=== PATIENT | female | born 1970 | race Caucasian/White ===

== ENCOUNTER 2022-06-04 10:53 | Outpatient (CLI) | payer OTHER, SELFPAY | END 2022-06-04 10:54 | disposition home or self-care (01) | PROVIDERS: PCP Physician Assistant Medical; Visit Provider Physician Assistant Medical | DX: E89.0 Postprocedural hypothyroidism (principal) | CPT/HCPCS: 84443 ==

== ENCOUNTER 2022-09-26 07:42 | Outpatient (CLI) | payer OTHER, SELFPAY | END 2022-09-26 07:43 | disposition home or self-care (01) | LOC: FBOREF 07:42 | PROVIDERS: PCP Physician Assistant Medical; Visit Provider Physician Assistant Medical | DX: E03.9 Hypothyroidism, unspecified (principal) | CPT/HCPCS: 84443 ==

== ENCOUNTER 2022-11-28 08:31 | Outpatient (CLI) | payer OTHER, SELFPAY | END 2022-11-28 08:32 | disposition home or self-care (01) | LOC: NFLDREF 11-29 07:43 | PROVIDERS: PCP Physician Assistant Medical; Referring Provider Physician Assistant Medical; Visit Provider Registered Nurse | DX: Z13.6 Encounter for screening for cardiovascular disorders (principal) | CPT/HCPCS: 80061 ==

== ENCOUNTER 2023-01-02 14:36 | Outpatient (CLI) | payer OTHER, SELFPAY ==
--- NOTE | 2023-01-02 14:40 | CRLHL7_ITS ---
For Patients: As a result of the Century Cures Act, medical imaging exams and procedure reports are released immediately into your electronic medical record. You may view this report before your referring provider. If you have questions, please contact your health care provider. BILATERAL SCREENING MAMMOGRAM WITH COMPUTER-AIDED DETECTION AND TOMOSYNTHESIS TECHNIQUE: CC and MLO views were obtained. These mammographic images have been obtained using full-field digital technique. These mammographic images were interpreted with the benefit of computer-aided detection. Breast Tomosynthesis was used in this interpretation. COMPARISON FILM: 12/26/21, 10/02/20, 09/22/19. FINDINGS: The breasts are heterogeneously dense, which may obscure small masses IMPRESSION: There is no radiographic evidence for malignancy. ASSESSMENT: BI-RADS Category 2: Benign RECOMMENDATION: Routine screening mammogram in 1 year. A lay language report of this examination will be provided to the patient. Rigoberto Hurtado M.D. Diagnostic Radiologist [email or web address] SANDEEP/Dictated by: Rigoberto Hurtado MD @ 01/05/2023 11:18:00 AM (Electronically Signed)
== END 2023-01-02 14:37 | disposition home or self-care (01) ==
LOC: MAMMO 14:37
PROVIDERS: PCP Physician Assistant Medical; Visit Provider Registered Nurse
DX: Z12.31 Encounter for screening mammogram for malignant neoplasm of breast (principal); R92.2 Inconclusive mammogram
CPT/HCPCS: 77063; 77067

== ENCOUNTER 2023-05-26 15:20 | Outpatient (CLI) | payer OTHER, SELFPAY ==
[2023-05-26 21:55] LABS: Chlamydia DNA Amplified* NOT DETECTED (No Detected); GC DNA Amplified* NOT DETECTED (No Detected)
== END 2023-05-26 15:21 | disposition home or self-care (01) ==
PROVIDERS: PCP Physician Assistant Medical; Visit Provider Registered Nurse
DX: Z11.3 Encounter for screening for infections with a predominantly sexual mode of transmission (principal)
CPT/HCPCS: 86592; 86703; 86803; 87340; 87491; 87591

== ENCOUNTER 2023-12-01 10:17 | Outpatient (CLI) | payer OTHER, SELFPAY | END 2023-12-01 10:18 | disposition home or self-care (01) | PROVIDERS: PCP Physician Assistant Medical; Visit Provider Physician Assistant Medical | DX: Z00.00 Encounter for general adult medical examination without abnormal findings (principal); E03.9 Hypothyroidism, unspecified; E78.5 Hyperlipidemia, unspecified; Z11.3 Encounter for screening for infections with a predominantly sexual mode of transmission; Z11.59 Encounter for screening for other viral diseases | CPT/HCPCS: 80053; 80061; 84432; 84443; 86592; 86703; 86800; 86803; 87340 ==

== ENCOUNTER 2024-02-29 15:15 | Outpatient (CLI) | payer OTHER, SELFPAY ==
--- OUTSIDE RECORDS SUMMARY | 2024-02-29 15:17 | XMS_ITS | Clinical Summary ---
Author Organization Formerly [facility] Address [address] [place] [address] Care Team Providers Care Auto Glass Technician Name Role Phone Mary Anne Shah PA-C Primary Care Provider [phone] Source Comments You are receiving this document as you are listed as the primary care provider,follow-up provider, or the patient has been referred to you for consultation.This is in compliance with the Medicare andSt. [facility] Cent[facility] EHR Incentive Program,which states Providers who transition their patient to another setting of careor provider of care or refers their patient to another provider of care shouldprovide summary care record for each transition of care or referral. [employer] Allergies Active Allergy Reactions Criticality Noted Date Comments Other 03/07/2005 PN: LW Other1: -NKA Sulfa Antibiotics 03/22/2003 PN: LW Reaction: HIVES Medications Medication Sig Dispensed Refills Start Date End Date Status Multiple Vitamins-Minerals (MULTIVITAMIN OR) Take 1 tablet by mouth daily (every 24 hours). 100 13 06/11/2006 Active Cetirizine HCl (ZYRTEC CHILDRENS ALLERGY) 5 MG chewable tablet Take 1 tablet by mouth daily (every 24 hours). LW Addl Instr:Indicated for: Allergies 90 3 01/04/2010 Active omega-3 fatty acids (FISH OIL) 1000 MG capsule Take 2 g by mouth daily. Active metroNIDAZOLE (METROLOTION) 0.75 % lotion 59 mL 11 12/06/2021 Active levothyroxine (SYNTHROID) 112 MCG tablet Take 1 Tablet (112 mcg) by mouth daily. Take at least one hour before or two hours after meal. 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 Malignant neoplasm of thyroid gland 06/11/2006 Overview: LW Onset: [id number] ; Ca Thyroid Papillary Allergic rhinitis 02/11/2003 Overview: Rhinitis Allergic NOS Immunizations Name Administration Dates Next Due Flu Vac Preserv Free (3+yrs) 08/09/2008, 10/04/2007,07/22/2006,07/07/2005, MMR 03/16/1998 TDAP (ADACEL) 01/11/2010 Td 11/16/1996 Family History Medical History Relation Name Comments Cancer Father Prostate High Cholesterol Father Hypertension Mother Thyroid Disorder Brother Osteoporosis Maternal Grandmother Cancer Paternal Grandfather lung Hypertension Paternal Grandmother Cancer, Breast Negative Family History Relation Name Status Comments Father Mother Brother Maternal Grandmother Paternal Grandfather Paternal Grandmother Social History Tobacco Use Types Packs/Day Years Used Date Smoking Tobacco: Never Smokeless Tobacco: Never Alcohol Use Standard Drinks/Week Comments Yes 0.8 (1 standard drin k = 0.6 oz pure alcohol) Alcoholic Drinks/day: Amount:1-2 drinks; Freq:=< Monthly; Sex and Gender Information Value Date Recorded Sex Assigned at Not on file Gender Identity Not on file Sexual Orientation Not on file Last Filed Vital Signs Vital Sign Reading Time Taken Comments Blood Pressure 125/70 07/30/2020 2:04 PM INDUSTRIAL RETROFIT DESIGNER Pulse 53 07/30/2020 2:02 PM INDUSTRIAL RETROFIT DESIGNER Temperature 37.1 ??C (98.8 ??F) 05/25/2014 8:35 AM CD T Respiratory Rate 16 05/01/2017 11:10 AM CDT Oxygen Saturation - - Inhaled Oxygen Concentration - - Weight 80.4 kg (177 lb 3.2 oz) 07/30/2020 2:02 P M IND[employer]AL RETROFIT DESIGNER Height 170.2 cm (5' 7) 07/27/2019 2:10 PM INDUSTRIAL RETROFIT DESIGNER Body Mass Index 27.75 07/27/2019 2:10 PM INDUSTRIAL RETROFIT DESIGNER Plan of Treatment Health Maintenance Due Date Last Done Comments Colon Cancer Screening Plan Due 1970 Hep C Screening (Preventive Services) 1969 HepB (1) 1988 Cholesterol 01/10/2015 01/10/2010, 03/16/1998 Adult Preventive Visit 04/30/2018 04/30/2017 Cervical Cancer Screening 04/30/20202016, 07/17/2014, 05/17/2012, Additional history exists Mammogram 09/22/2020 09/22/2019, 11/0 01/2018, 09/04/2017, Additional history exists COVID-19 Vaccine ( season) 2023 07/24/2021, 01/09/2021, 12/21/2020 Influenza (Season Ended) 2024 021, 05/26/2020, 05/31/2019, Additional history exists DTaP/Tdap/Td (3 - Tdap) 05/31/2030 05/31/20 20, 01/11/2010, 11/16/1996 HIV Screening (Preventive Services) Completed 03/25/2005, 07/23/2001 Zoster/Shingles Completed 04/10/2020, 10/27/2019 HepA Aged Out No longer eligi ble based on patient's age to complete this topic Hib Aged Out No longer eligi ble based on patient's age to complete this topic IPV (Polio) Aged Out No longer eligi ble based on patient's age to complete this topic MCV4 Aged Out No longer eligi ble based on patient's age to complete this topic Pneumococcal Aged Out No longer eligi ble based on patient's age to complete this topic Procedures Procedure Name Priority Date/Time Associated Diagnosis Comments MM MAMMOGRAM SCREENING BILAT W 3D JUAN A W CAD Routine 09/22/2019 8:25 AM INDUSTRIAL RETROFIT DESIGNER Visit for screening mammogram ANATOMICAL PATH LIQUID BASED Routine 04/30/2017 2:09 PM CDT LIPID PANEL & DIRECT LDL (IF NEEDED) Routine 01/10/2010 9:17 AM CDT HIV ANTIBODY Routine 03/25/2005 9:03 AM CDT from Last 3 Months or Most Recently Relevant to Health Maintenance Results * MM Mammogram Screening Bilat W 3D Juan A W CAD (09/22/2019 8:25 AM INDUSTRIAL RETROFIT DESIGNER) Anatomical Region Laterality Modality Breast Bilateral Mammography Impressions 09/23/2019 9:03 AM INDUSTRIAL RETROFIT DESIGNER : ACR BI-RADS Category 1: Negative RECOMMENDATION: Follow Up Imaging in 12 months - Bilateral The results and recommendations of this examination will be communicated to the patient. Narrative 09/23/2019 9:03 AM INDUSTRIAL RETROFIT DESIGNER MM MAMMOGRAM SCREENING BILAT W 3D JUAN A W CAD performed on 09/22/19 Compared to: 07/12/2018 MM Mammogram Screening Bilat W 3D Juan A W CAD, 09/04/2017 MM Mammogram Screening Bilat W CAD, and 07/03/2016 MM Mammogram Screening Bilat W CAD FINDINGS: Bilateral screening mammogram was performed with the assistance of Computer-Aided Detection and breast tomosynthesis. The breasts are heterogeneously dense, which may obscure small masses. There is no radiographic evidence of malignancy. ?? Deanna Tapia MD RAD [facility] * Pap Smear (04/30/2017 2:09 PM CDT) 04/30/2017 2:09 PM CDT Narrative PN SOFT - 05/04/2017 4:16 PM CDT FINAL GYNECOLOGICAL CYTOLOGY REPORT Pathology #: [id number] ?Date Obtained: 04/30/2017 ? Date Received: 05/01/2017 INTERPRETATION/RESULTS: Negative for Intraepithelial Lesion or Malignancy. SPECIMEN ADEQUACY: Satisfactory for Evaluation. ??Endocervical cells/transformation zone component present. Verified on 05/04/2017 ??by JANA MAC CT(ASCP) (electronic signature) CLINICAL NOTES: ?Abnormal bleeding: No, LMP: 04/12/17, Menstrual status: None Apply, ?Current form of therapy: None apply LIQUID BASED PAP SMEAR SPECIMEN TYPE: ?ROUTINE CERVICAL PAP TEST PLEASE NOTE: The pap smear is a screening test designed to aid in the detection of cervical cancer and its precursor lesions. It is not a diagnostic procedure and should not be used as the sole means of detecting cervical cancer. Both false-positive and false-negative reports may occur. Performed at [facility], [address] [place] [address] Braden Montano MD LAB_1 Performing Organization Address [facility] Co de Phone Number PN SOFT [address] [place] [address] * Lipid Panel and Direct LDL(If Needed) (01/10/2010 9:17 AM CDT) Cholesterol 163 0 - 200 mg/dL HP CONVERSION Triglycerides 67 0 - 149 mg/dL HP CONVERSION HDL Cholesterol 44 >39 mg/dL HP CONVERSION Cholesterol/HDL Ratio Screen 3.7 No normal range HP CONVERSION LDL Calculated 106 19 - 130 mg/dL HP CONVERSION Hours Fasting 12.0 No normal range HP CONVERSION 01/10/2010 9:17 AM CDT Karthik Kerr MD LAB_1 Performing Organization Address [facility] Co de Phone Number HP CONVERSION * HIV Antibody (03/25/2005 9:03 AM CDT) HIV 1/HIV 2 Non Reac Non Reac HP CONVERSION 03/25/2005 9:03 AM CDT Abby Hammond APRN, PRE SALES TECHNICAL CONSULTANT LAB_1 Performing Organization Address [facility] Co de Phone Number HP CONVERSION from Last 3 Months or Most Recently Relevant to Health Maintenance Care Teams Auto Glass Technician Relationship Specialty Start Date End Date Mary Anne Shah, JOANNEC [address] [place], [place] [id number] PCP - General Physician Brush Fabrication Supervisor 07/24/20
--- OUTSIDE RECORDS SUMMARY | 2024-02-29 15:17 | XMS_ITS | Clinical Summary ---
Author Organization [facility] Address [address] [place] [id number] Phone [email or web address] Care Team Providers Care Surface Logging Systems Logger Name Role Phone Unavailable Primary Care Provider Unavailabl e Allergies Active Allergy Reactions Criticality Noted Date Comments Sulfa Antibiotics 03/22/2003 PN: LW Reaction: HIVES Medications Medication Sig Dispensed Refills Start Date End Date Status MULTIPLE VITAMIN PO Take 1 tablet by mouth daily. 06/11/2006 Active cetirizine (ZyrTEC) 5 MG chewable tablet Chew 1 tablet daily. 01/04/2010 Active levothyroxine (SYNTHROID) 125 MCG tablet Take 125 mcg by mouth. 07/27/2019 Active omega-3 acid ethyl esters (LOVAZA) 1 g capsule Take 2 g by mouth 2 (two) times a day. Active Immunizations Name Administration Dates Next Due COVID-19 (Pfizer Baca 12 yrs+) (CVX-208) 021,01/09/2021,12/21/2020 Covid-19 (Pfizer Baca, 12 yrs+) (CVX-217) 2021 Influenza (Flucelvax) MDCK, PF, quad (CVX-171) 06/01/2018 Influenza PF Tri (CVX - 140) 06/23/2016 Influenza Tri (CVX - 141) 06/27/2015 Influenza, (Afluria Fluarix Flulaval Fluzone) quad, PF (CVX-150) 07/16/2022,05/31/2019 Influenza, (Afluria Fluzone) quad, PF, 6-35 mo (CVX-161) 07/01/2017 MMR (M-M-R-II,PRIORIX) (TWO VIALS-MUST MIX) (CVX-03) 03/16/1998 Td (TdVax), adult, 2 Lf teta nus toxoid, PF, adsorbed (CVX-09) 11/16/1996 Tdap (ADACEL BOOSTRIX) (CVX-115) 01/11/2010 Zoster (Shingrix) (TWO VIALS -MUST MIX) recombinant (CVX-187) 04/10/2020,10/27/2019 Social History Tobacco Use Types Packs/Day Years Used Date Smoking Tobacco: Never Smokeless Tobacco: Never Intimate Partner Violence Answer Date R ecorded Insults You Not on file 12/18/2020 Threatens You Not on file 12/18/2020 Screams at You Not on file 12/18/2020 Physically Hurt Not on file 12/18/2020 Intimate Partner Violence Score Not on file 12/18/2020 Stress Answer Date Recorded Stress in your Life 0 10/18/2020 Dealing with Stress Not on file 10/18/2020 Sex and Gender Information Value Date Recorded Sex Assigned at Female 12/17/2021 11:15 AM CDT Gender Identity Female 12/17/2021 11:15 AM CDT Sexual Orientation Not on file Last Filed Vital Signs Vital Sign Reading Time Taken Comments Blood Pressure 118/64 04/10/2020 8:52 AM CDT Pulse - - Temperature 36.4 ??C (97.6 ??F) 04/10/2020 8 :25 AM CDT IRT-forehead Respiratory Rate - - Oxygen Saturation - - Inhaled Oxygen Concentration - - Weight 77.4 kg (170 lb 9.6 oz) 04/10/20 8:52 AM CDT Height 170.8 cm (5' 7.25) 04/10/2020 8 :52 AM CDT Body Mass Index 26.52 04/10/2020 8:52 AM CDT Plan of Treatment Health Maintenance Due Date Last Done Comments Dental Cleaning/Exam 1970 Cervical Cancer Screening 1985 Hepatitis B Immunization (1 of 3 - 19+ 3-dose series) 1988 Colorectal Cancer Screening 1999 Breast Cancer Screening 09/22/2021 09/22/2019 Covid-19 Immunization ( season) 2023 12/24/2021, 12/24/2021, 07/24/2021, Additional history exists Influenza Immunization (Season Ended) 2024 07/16/2022, 05/31/2019, 06/01/2018, Additional history exists Tetanus (Tdap or Td) Immunization 05/31/2030 05/31/2020, 01/11/2010, 11/16/1996 Zoster Immunization Completed 04/10/2020, 0 HIB Immunization Aged Out No longer e ligible based on patient's age to complete this topic HPV Immunization Aged Out No longer e ligible based on patient's age to complete this topic Hepatitis A Immunization Aged Out No longer eligible based on patient's age to complete this topic Pneumococcal: Ped (0 to 5 Yrs) and At-Risk Member (6 to 64 Yrs) Aged Out No longer eligible based on patient's age to complete this topic Polio Immunization Aged Out No longer eligible based on patient's age to complete this topic
--- NOTE | 2024-02-29 15:20 | CRLHL7_ITS ---
For Patients: As a result of the Century Cures Act, medical imaging exams and procedure reports are released immediately into your electronic medical record. You may view this report before your referring provider. If you have questions, please contact your health care provider. BILATERAL SCREENING MAMMOGRAM WITH COMPUTER-AIDED DETECTION AND TOMOSYNTHESIS TECHNIQUE: CC and MLO views were obtained. These mammographic images have been obtained using full-field digital technique. These mammographic images were interpreted with the benefit of computer-aided detection. Breast Tomosynthesis was used in this interpretation. COMPARISON FILM: 01/02/23, 12/26/21, 10/02/20. FINDINGS: The breasts are heterogeneously dense, which may obscure small masses. IMPRESSION: There is no radiographic evidence for malignancy. ASSESSMENT: BI-RADS Category 2: Benign RECOMMENDATION: Routine screening mammogram in 1 year. A lay language report of this examination will be provided to the patient. Rigoberto Hurtado M.D. Diagnostic Radiologist [email or web address] SP/Dictated by: Rigoberto Hurtado MD @ 03/07/2024 2:59:00 PM (Electronically Signed)
== END 2024-02-29 15:16 | disposition home or self-care (01) ==
LOC: MAMMO 15:15
PROVIDERS: PCP Physician Assistant Medical; Visit Provider Physician Assistant Medical
DX: Z12.31 Encounter for screening mammogram for malignant neoplasm of breast (principal); R92.2 Inconclusive mammogram
CPT/HCPCS: 77063; 77067

== ENCOUNTER 2024-12-02 07:40 | Outpatient (CLI) | payer OTHER, SELFPAY | END 2024-12-02 07:41 | disposition home or self-care (01) | LOC: NFLDREF 12-03 07:37 | PROVIDERS: PCP Physician Assistant Medical; Referring Provider Physician Assistant Medical; Visit Provider Physician Assistant Medical | DX: E78.2 Mixed hyperlipidemia (principal); E89.0 Postprocedural hypothyroidism | CPT/HCPCS: 80053; 80061; 84443 ==

== ENCOUNTER 2024-12-12 07:48 | Outpatient (CLI) | payer OTHER, SELFPAY | END 2024-12-12 07:49 | disposition home or self-care (01) | PROVIDERS: PCP Physician Assistant Medical; Visit Provider Physician Assistant Medical | DX: E89.0 Postprocedural hypothyroidism (principal); N95.8 Other specified menopausal and perimenopausal disorders | CPT/HCPCS: 84432; 84439; 86800 ==

== ENCOUNTER 2024-12-22 09:02 | Outpatient (CLI) | payer OTHER, SELFPAY ==
[2024-12-22 14:49] LABS: Bacterial Vaginosis* Negative (Negative); Candida glab/krus NOT DETECTED (No Detected); Candida species NOT DETECTED (No Detected); Trichomonas vaginalis NOT DETECTED (No Detected)
[2024-12-22 15:19] LABS: Chlamydia DNA Amplified* NOT DETECTED (No Detected); GC DNA Amplified* NOT DETECTED (No Detected)
== END 2024-12-22 09:03 | disposition home or self-care (01) ==
PROVIDERS: PCP Physician Assistant Medical; Visit Provider Registered Nurse
DX: F52.0 Hypoactive sexual desire disorder (principal); R68.82 Decreased libido; N95.8 Other specified menopausal and perimenopausal disorders; Z11.3 Encounter for screening for infections with a predominantly sexual mode of transmission
CPT/HCPCS: 81513; 84403; 86592; 86703; 86803; 87340; 87481; 87491; 87591; 87661

== ENCOUNTER 2025-02-03 13:05 | Outpatient (CLI) | payer OTHER, SELFPAY | END 2025-02-03 13:06 | disposition home or self-care (01) | LOC: NFLDREF 02-09 01:18 | PROVIDERS: PCP Physician Assistant Medical; Referring Provider Physician Assistant Medical; Visit Provider Registered Nurse | DX: F52.0 Hypoactive sexual desire disorder (principal) | CPT/HCPCS: 84270; 84402; 84403 ==

== ENCOUNTER 2025-03-02 14:49 | Outpatient (CLI) | payer OTHER, SELFPAY ==
--- NOTE | 2025-03-02 15:00 | CRLHL7_ITS ---
For Patients: As a result of the Century Cures Act, medical imaging exams and procedure reports are released immediately into your electronic medical record. You may view this report before your referring provider. If you have questions, please contact your health care provider. INDICATION: BILATERAL SCREENING MAMMOGRAM, ASYMPTOMATIC 54 Y/O FEMALE COMPARISON: 02/29/2024, 01/02/2023, 12/26/2021 TECHNIQUE: Digital mammogram in CC and MLO projections including computer-aided detection (CAD) and tomosynthesis. BREAST COMPOSITION: The breasts are heterogeneously dense, which may obscure small masses. FINDINGS: No suspicious findings. ASSESSMENT: BI-RADS 2 Benign RECOMMENDATION: Annual screening mammogram. A lay language report of this examination will be provided to the patient. Dictated by: Rigoberto Hurtado MD @ 03/03/2025 10:15:07 (Electronically Signed)
== END 2025-03-02 14:50 | disposition home or self-care (01) ==
LOC: MAMMO 14:50
PROVIDERS: PCP Physician Assistant Medical; Visit Provider Registered Nurse
DX: Z12.31 Encounter for screening mammogram for malignant neoplasm of breast (principal); R92.333 Mammographic heterogeneous density, bilateral breasts
CPT/HCPCS: 77063; 77067

== ENCOUNTER 2025-03-13 08:02 | Outpatient (CLI) | payer OTHER, SELFPAY | END 2025-03-13 08:03 | disposition home or self-care (01) | LOC: NFLDREF 03-15 15:14 | PROVIDERS: PCP Physician Assistant Medical; Referring Provider Physician Assistant Medical; Visit Provider Physician Assistant Medical | DX: E89.0 Postprocedural hypothyroidism (principal) | CPT/HCPCS: 84443 ==

== ENCOUNTER 2025-04-07 07:37 | Outpatient (CLI) | payer OTHER, SELFPAY | END 2025-04-07 07:38 | disposition home or self-care (01) | LOC: NFLDREF 04-19 14:00 | PROVIDERS: PCP Physician Assistant Medical; Referring Provider Physician Assistant Medical; Visit Provider Registered Nurse | DX: F52.0 Hypoactive sexual desire disorder (principal) | CPT/HCPCS: 84403 ==

== ENCOUNTER 2025-07-21 13:21 | Outpatient (CLI) | payer OTHER, SELFPAY | END 2025-07-21 13:22 | disposition home or self-care (01) | LOC: FRMREF 13:22 | PROVIDERS: PCP Physician Assistant Medical; Visit Provider Registered Nurse | DX: F52.0 Hypoactive sexual desire disorder (principal) | CPT/HCPCS: 84403 ==

== ENCOUNTER 2025-08-22 14:02 | Outpatient (CLI) | payer OTHER, SELFPAY | END 2025-08-22 14:03 | disposition home or self-care (01) | LOC: NFLDREF 08-27 17:33 | PROVIDERS: PCP Physician Assistant Medical; Referring Provider Physician Assistant Medical; Visit Provider Registered Nurse | DX: F52.0 Hypoactive sexual desire disorder (principal) | CPT/HCPCS: 84403 ==